=== PATIENT | female | born 1935 | race Caucasian/White ===

== ENCOUNTER 2021-05-03 08:38 | Inpatient (IN) | payer MEDICARE, BC ==
[~2021-05-03] VITALS: Ht 154.9 cm; Wt 92.6 kg
--- NOTE | 2021-05-03 08:42 | PHYS DOC ---
Past History Past Medical History: Dementia Adult General Chief Complaint Chief Complaint: MECHANICAL FALL HPI HPI Patient is a 85-year-old female presenting via EMS for a fall. Majority of record is obtained from EMS due to patient's acute intoxication from administer ed opioid medication in route. Patient he lives at home with daughter was apparently walking with her walker and fell backwards onto her tailbone. This was witnessed, patient did not hit her head, no loss of consciousness or other concerning signs or symptoms such as dizziness, prodromal symptoms, loss of bladder or bowel, nausea or vomit was reported or observed. It is unknown if patient is taking any blood thinners. Given patient's age and comorbid conditions, daughter was concerned and called EMS. Transported to our facility. On EMS arrival to home, patient was found to be hemodynamically stable and complaining of lower back pain only. A total of 50 mcg fentanyl administered and patient subsequently transported to our facility. On arrival, patient denies any symptoms. She is unclear of what happened and why she is in the ER Review of Systems Review of Systems Fourteen body systems of review of systems have been reviewed. See HPI for pertinent positives and negative responses, other german all other systems are negative, non-pertinent or non-contributory Physical Exam Physical Exam Constitutional: Pt is oriented to person, place, and time. Pt appears well-developed and well- nourished. Age-appropriate. GCS 15 HEENT: Head: Normocephalic and atraumatic. TMs clear, no hemotympanum Conjunctivae and EOM are normal. Pupils are pinpoint, equal, round, and reactive to light. Oropharynx is clear and moist. No hematomas or lacerations or abrasions to face or scalp OP clear, no blood, no malocclusion, dentition intact Nares clear, no nasal septal hematoma Midface stable Neck: C-spine midline nontender, no step-offs Cardiovascular: Normal rate, regular rhythm and normal heart sounds. Pulmonary/Chest: Effort normal and breath sounds normal. No respiratory distress. No wheezes. CTA bilaterally Abdominal: Soft. Bowel sounds are normal. Pt exhibits no distension. There is no tenderness. Musculoskeletal: No bony tenderness to extremities, no deformities, full ROM extremities Chest wall stable Pelvis stable and non-tender Vertebral tenderness to palpation over level of T12 without any appreciated step-offs or other abnormalities Neurological: Pt is alert and oriented to person, place, and time. Moving all extremities willfully, able to wiggle all fingers and toes Alert and oriented x 3 Motor and sensory function fully intact Downgoing toes bilaterally Patient able to bear down with adequate rectal tone, no saddle anesthesia Skin: Skin is warm and dry. No abrasions, no lacerations Psychiatric: Behavior is appropriate for situation Current Patient Data Vital Signs Vital Signs Date Time Temp Pulse Resp B/P (MAP) Pulse Ox O2 Delivery O2 Flow Rate FiO2 05/03/21 08:56 97.7 87 18 134/82 (99) 83 Room Air 05/03/21 09:01 3.0 Vital Signs Date Time Temp Pulse Resp B/P (MAP) Pulse Ox O2 Delivery O2 Flow Rate FiO2 05/03/21 09:01 97 Nasal Cannula 3.0 05/03/21 08:56 97.7 87 18 134/82 (99) Lab Results Laboratory Tests Test 05/03/21 09:22 05/03/21 09:31 05/03/21 11:34 Urine Collection Type Unknown Urine Color Straw Urine Clarity Clear Urine pH 6.5 Urine Specific [place] 1.015 Urine Protein Neg Urine Glucose (UA) Neg mg/dL Urine Ketones (Stick) Neg mg/dL Urine Blood Neg Urine Nitrite Neg Urine Bilirubin Neg Urine Urobilinogen Dipstick 0.2 mg/dL Urine Leukocyte Esterase Neg Urine RBC Occ /HPF Urine WBC Occ /HPF Urine Squamous Epithelial Cells Few /LPF Urine Bacteria 0 /HPF Urine Hyaline Casts Occ /HPF Urine Mucus Slight /LPF White Blood Count 16.7 x10^3/uL Red Blood Count 4.40 x10^6/uL Hemoglobin 12.4 g/dL Hematocrit 39.9 % Mean Corpuscular Volume 91 fL Mean Corpuscular Hemoglobin 28 pg Mean Corpuscular Hemoglobin Concent 31 g/dL Red Cell Distribution Width 22.2 % Platelet Count 277 x10^3/uL Neutrophils (%) (Auto) 78 % Lymphocytes (%) (Auto) 15 % Monocytes (%) (Auto) 6 % Eosinophils (%) (Auto) 1 % Basophils (%) (Auto) 1 % Neutrophils # (Auto) 12.9 x10^3uL Lymphocytes # (Auto) 2.4 x10^3/uL Monocytes # (Auto) 1.0 x10^3/uL Eosinophils # (Auto) 0.2 x10^3/uL Basophils # (Auto) 0.1 x10^3/uL Segmented Neutrophils % 59 % Band Neutrophils % 12 % Lymphocytes % 20 % Monocytes % 7 % Metamyelocytes % 2 % Platelet Estimate Adequate Anisocytosis Slight Sodium Level 141 mmol/L Potassium Level 3.8 mmol/L Chloride Level 102 mmol/L Carbon Dioxide Level 30 mmol/L Anion Gap 9 Blood Urea Nitrogen 13 mg/dL Creatinine 0.9 mg/dL Estimated GFR (Cockcroft-Gault) 59.4 Glucose Level 126 mg/dL Calcium Level 8.9 mg/dL Troponin I High Sensitivity 7 ng/L SARS-CoV-2 Antigen (Rapid) Negative Current Medications Medications (Trade) Dose Ordered Sig/Irma Route PRN Reason Start Time Stop Time Status Last Admin Dose Admin Fentanyl Citrate (Fentanyl 2ml Vial) 50 mcg 1X ONCE IVP 05/03/21 11:00 05/03/21 11:07 DC 05/03/21 10:58 Hydromorphone HCl (Dilaudid) 1 mg STK-MED ONCE .ROUTE 05/03/21 12:57 05/03/21 12:57 DC Hydromorphone HCl (Dilaudid) 0.5 mg 1X ONCE IVP 05/03/21 13:00 05/03/21 13:07 DC 05/03/21 13:02 Hydromorphone HCl (Dilaudid) 0.5 mg 1X ONCE IVP 05/03/21 15:45 05/03/21 15:46 DC 05/03/21 16:13 EKG EKG EKG ordered and interpreted by myself at 0940 hrs. as sinus rhythm at 84 bpm, prolonged AZ at 236, QRS at 122, and QTC at 483 otherwise unremarkable intervals, no axis deviation, T wave inversion noted in leads V1 and V2, no STEMI Radiology/Procedures Radiology/Procedures CT HEAD AND C-SPINE WO History: Fall to ground, midline tenderness to neck, t10-l2 Comparison: None. Technique: Noncontrast CT of the head and cervical spine. Findings: CT HEAD: There is no evidence for intracranial mass or hemorrhage. There is no hydrocephalus or midline shift. No abnormal extra-axial fluid collections are present. No evidence of acute territorial infarction. Hypodensity of the periventricular white matter consistent with chronic microvascular ischemic changes. The visualized paranasal sinuses and mastoid air cells are clear. Postsurgical changes of the lenses. Orbits are otherwise unremarkable. Calcifications of the intracranial carotid arteries. The skull and scalp are within normal limits. CT CERVICAL SPINE: There is no evidence for fracture in the cervical spine. Straightening of the normal cervical lordosis. No spondylolisthesis. Disc space narrowing C4-C5 and C5-C6 with circumferential osteophytes causing bilateral neural foraminal stenosis. No destructive osseous lesions are seen. Mild emphysematous changes in lung apex. Calcification of the aortic arch. Impression: 1. No acute intracranial findings. 2. No acute osseous abnormality in the cervical spine. 3. Degenerative changes of the cervical spine C4-C6 with bilateral neural foraminal stenoses. Correlate for radicular symptoms. ------- Exposure: One or more of the following individualized dose reduction techniques were utilized for this examination: 1. Automated exposure control 2. Adjustment of the mA and/or kV according to patient size 3. Use of iterative reconstruction technique. Electronically signed by: Edwin Colby MD (05/03/2021 10:27 AM) [id number] ////////////////////////////////////////////////////////// Single view of the chest. 05/03/2021 10:21 AM Indication: Reason: fall Comparison: None Findings: There is no focal consolidation. There is no pleural effusion or pneumothorax. Mild cardiac medially noted.. No acute osseous abnormalities are seen. Impression: No evidence of acute cardiopulmonary process. Electronically signed by: Fransisco Washington MD (05/03/2021 10:39 AM) [id number] /////////////////////////////////// EXAM: Pelvis, single view. HISTORY: Fall. COMPARISON: None. FINDINGS: A frontal view of the pelvis is obtained. There is moderate marginal right femoral head spurring. There is mild bilateral acetabular and left femoral head spurring. There is degenerative change at the lumbosacral junction. IMPRESSION: 1. Moderate right and mild left hip osteoarthritis. 2. Degenerative change at the lumbosacral junction. Electronically signed by: Thea Viera MD (05/03/2021 10:37 AM) [id number] //////////////// CT LUMBAR SPINE WO, CT THORACIC SPINE WO History: Reason: fall to ground, midline tenderness to neck, t10-l2 / Spl. Inst ructions: / History: Technique: Noncontrast CT was performed of the lumbar spine. Multiplanar reconstructions were performed. Comparison: CT cervical spine 05/03/2021. Chest x-ray 04/22/2018 Findings: There are 12 rib bearing thoracic vertebral bodies with tiny riblets at T12. There are 4 nonrib-bearing lumbar type vertebral bodies. Compression fracture of the T12 vertebral body with disruption of the anterior cortex and approximately 20 percent height loss. No paraspinal hematoma is identified. Diffusely decreased osseous mineralization. Normal alignment in the thoracic and lumbar spine. Degenerative changes of the lower cervical spine are identified. Multilevel marginal osteophytes in the thoracic spine. There is irregular sclerotic density in the left posterior inferior T7 vertebral body present since 2018. Degenerative changes of the L4-S1 disc with vacuum disc phenomena. Left L3-L4 and right L4-S1 facet hypertrophy. Emphysematous changes in the lungs. Atherosclerotic calcifications of the coron clementina arteries, aorta and iliac arteries. No aneurysm. Impression: 1. Acute compression deformity at the T12 vertebral body with approximately 20 percent anterior height loss and disruption of the anterior cortex. 2. Variant anatomy with 12 thoracic vertebral segments including rudimentary ribs at T12 and 4 lumbar type vertebral bodies. 3. Degenerative changes of the lower lumbar spine. 4. Emphysematous changes. Exposure: One or more of the following individualized dose reduction techniques were utilized for this examination: 1. Automated exposure control 2. Adjustment of the mA and/or kV according to patient size 3. Use of iterative reconstruction technique. Electronically signed by: Edwin Colby MD (05/03/2021 10:37 AM) [id number] Heart Score C/O Chest Pain: No HEART Score for Chest Pain: HEART Score for Chest Pain Response (Comments) Value History Slighlty/Non-Suspicious 0 ECG Nonspecific Repolarizatio 1 Age > 65 2 Risk Factors >3 Risk Factors or Hx CAD 2 Troponin < Normal Limit 0 Total 5 Risk Factors: Risk Factors: DM, Current or recent (<one month) smoker, HTN, HLP, family history of CAD, obesity. Risk Scores: Risk Factors: DM, Current or recent (<one month) smoker, HTN, HLP, family history of CAD, obesity. Course & Med Decision Making Course & Med Decision Making Airway patent, breathing unlabored, IV access and vitals obtained concerning for hypoxia only in an elderly patient who recently received opioid medication History limited due to dementia and the fact that patient is under the influence of narcotic pain medication. Physical examination and subsequent comprehensive ER work-up concerning for acute T12 compression fracture Patient's mentation improved after time during ER stay likely from metabolizing opioid medication administered in route. Is more reliable historian with history confirmed by daughter at bedside. She is on no blood thinners. Only complaint is midline back pain without radiation or neuro sxs I contacted neurosurgery [facility]level [facility] and discussed case, case and images were reviewed with attending neurosurgeon who discussed potential need for vertebroplasty and recommended transfer to [facility] I discussed conversation with neurosurgeon with patient and daughter at bedside, patient who at time of discussion was AAO x3, GCS 15 and demonstrated full decision-making capacity voiced she did not want any surgery whatsoever and wanted conservative management As such, neurosurgeon group at [facility] was contacted due to excessive wait for admission at [facility] due to COVID-19 titus demic. Attending neurosurgeon at [facility] ultimately recommended conservative management and advised placement at current hospital I contacted [facility] hospitalist and discussed case at length, patient was ultimately accepted under the care of Dr. Mejía for continued pain control, fitting of a back brace, PT, OT etc. to ensure safe discharge back home with the daughter given new acute T12 fracture I updated patient and daughter on all conversations above and entirety of ER work-up, they were amenable to hospital admission at [facility] for further inpatient work-up and assistance with discharge planning given new deficits. All questions and concerns addressed prior to admission Of note, patient does confirm that she is DNR status at time of admission Dragon Disclaimer Dragon Disclaimer This electronic medical record was generated, in whole or in part, using a voice recognition dictation system. Departure Departure: Impression: Primary Impression: Fall Additional Impressions: T12 compression fracture History of chronic pain Disposition: ADMITTED INPATIENT Admitting Physician: Maykel Mejía Condition: STABLE Problem Qualifiers RICHIE RUDOLPH DO May 03, 2021 08:42
[2021-05-03 09:47] LABS: BASO # 0.1 x10^3/uL (0.0-0.2); BASO % 1 % (0-3); EOS # 0.2 x10^3/uL (0.0-0.7); EOS % 1 % (0-3); HEMATOCRIT 39.9 % (36.0-47.0); HEMOGLOBIN 12.4 g/dL (12.0-15.5); LYMPH # 2.4 x10^3/uL (1.0-4.8); LYMPH % 15 % (24-48); MEAN CORPUSCULAR HEMOGLOBIN 28 pg (25-35); MEAN CORPUSCULAR HGB CONC 31 g/dL (31-37); MEAN CORPUSCULAR VOLUME 91 fL (79-100); MONO % 6 % (0-9); NEUT # 12.9 x10^3uL (1.8-7.7); NEUT % 78 % (31-73); PLATELET COUNT 277 x10^3/uL (140-400); RED CELL DISTRIBUTION WIDTH 22.2 % (11.5-14.5); WHITE BLOOD COUNT 16.7 x10^3/uL (4.0-11.0)
[2021-05-03 09:55] LABS: BACTERIA,URINE 0 /HPF (0-FEW); BILIRUBIN,URINE NEG (NEG); CLARITY,URINE CLEAR; COLOR,URINE STRAW; GLUCOSE,URINE NEG (NEG); NITRITE,URINE NEG (NEG); RBC,URINE OCC /HPF (0-2); SQUAMOUS EPITHELIAL CELL,UR FEW /LPF; UROBILINOGEN,URINE 0.2 mg/dL (0.2 mg/dL); WBC,URINE OCC /HPF (0-4)
[2021-05-03 09:56] LABS: HYALINE CASTS, URINE OCC /HPF
[2021-05-03 09:58] LABS: CALCIUM 8.9 mg/dL (8.5-10.1); CREATININE 0.9 mg/dL (0.6-1.0); GFR 59.4; POTASSIUM 3.8 mmol/L (3.5-5.1)
--- NOTE | 2021-05-03 10:03 | EKG ---
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
--- NOTE | 2021-05-03 10:29 | RAD ---
CT HEAD AND C-SPINE WO History: Fall to ground, midline tenderness to neck, t10-l2 Comparison: None. Technique: Noncontrast CT of the head and cervical spine. Findings: CT HEAD: There is no evidence for intracranial mass or hemorrhage. There is no hydrocephalus or midline shift. No abnormal extra-axial fluid collections are present. No evidence of acute territorial infarction. Hypodensity of the periventricular white matter consiste nt with chronic microvascular ischemic changes. The visualized paranasal sinuses and mastoid air cells are clear. Postsurgical changes of the lenses. Orbits are otherwise unremarkable. Calcifications of the intracranial carotid arteries. The skull and scalp are within normal limits. CT CERVICAL SPINE: There is no evidence for fracture in the cervical spine. Straightening of the normal cervical lordosis. No spondylolisthesis. Disc space narrowing C4-C5 and C5-C6 with circumferential osteophytes causing bilateral neural forami nal stenosis. No destructive osseous lesions are seen. Mild emphysematous changes in lung apex. Calcification of the aortic arch. Impression: 1. No acute intracranial findings. 2. No acute osseous abnormality in the cervical spine. 3. Degenerative changes of the cervical spine C4-C6 with bilateral neural foraminal stenoses. Correl ate for radicular symptoms. ------- Exposure: One or more of the following individualized dose reduction techniques were utilized for thi s examination: 1. Automated exposure control 2. Adjustment of the mA and/or kV according to patient size 3. Use of iterative reconstruction technique. Electronically signed by: Edwin Colby MD (05/03/2021 10:27 AM) [id number]
--- NOTE | 2021-05-03 10:39 | RAD ---
CT LUMBAR SPINE WO, CT THORACIC SPINE WO History: Reason: fall to ground, midline tenderness to neck, t10-l2 / Spl. Instructions: / History: Technique: Noncontrast CT was performed of the lumbar spine. Multiplanar reconstructions were perform ed. Comparison: CT cervical spine 05/03/2021. Chest x-ray 04/22/2018 Findings: There are 12 rib bearing thoracic vertebral bodies with tiny riblets at T12. There are 4 nonrib-beari ng lumbar type vertebral bodies. Compression fracture of the T12 vertebral body with disruption of the anterior cortex and approximate ly 20 percent height loss. No paraspinal hematoma is identified. Diffusely decreased osseous mineralization. Normal alignment in the thoracic and lumbar spine. Degenerative changes of the lower cervical spine are identified. Multilevel marginal osteophytes in t he thoracic spine. There is irregular sclerotic density in the left posterior inferior T7 vertebral b gala present since 2018. Degenerative changes of the L4-S1 disc with vacuum disc phenomena. Left L3-L4 and right L4-S1 facet h ypertrophy. Emphysematous changes in the lungs. Atherosclerotic calcifications of the coronary arteries, aorta an d iliac arteries. No aneurysm. Impression: 1. Acute compression deformity at the T12 vertebral body with approximately 20 percent anterior heig ht loss and disruption of the anterior cortex. 2. Variant anatomy with 12 thoracic vertebral segments including rudimentary ribs at T12 and 4 lumba r type vertebral bodies. 3. Degenerative changes of the lower lumbar spine. 4. Emphysematous changes. Exposure: One or more of the following individualized dose reduction techniques were utilized for thi s examination: 1. Automated exposure control 2. Adjustment of the mA and/or kV according to patient size 3. Use of iterative reconstruction technique. Electronically signed by: Edwin Colby MD (05/03/2021 10:37 AM) [place] [id number]
--- NOTE | 2021-05-03 10:40 | RAD ---
EXAM: Pelvis, single view. HISTORY: Fall. COMPARISON: None. FINDINGS: A frontal view of the pelvis is obtained. There is moderate marginal right femoral head spu rring. There is mild bilateral acetabular and left femoral head spurring. There is degenerative coronado e at the lumbosacral junction. IMPRESSION: 1. Moderate right and mild left hip osteoarthritis. 2. Degenerative change at the lumbosacral junction. Electronically signed by: Thea Viera MD (05/03/2021 10:37 AM) [id number]
--- NOTE | 2021-05-03 10:42 | RAD ---
Single view of the chest. 05/03/2021 10:21 AM Indication: Reason: fall Comparison: None Findings: There is no focal consolidation. There is no pleural effusion or pneumothorax. Mild cardiac medially noted.. No acute osseous abnormalities are seen. Impression: No evidence of acute cardiopulmonary process. Electronically signed by: Fransisco Washington MD (05/03/2021 10:39 AM) [id number]
[2021-05-03] MEDS ORDERED: HYDROmorphone PF 1 MG/ML DISP.SYRIN ONE (12:57)
[2021-05-03] MEDS ORDERED: HYDROmorphone PF 1 MG/ML DISP.SYRIN IVP ONE ×2 (13:00→15:45)
[2021-05-03] MEDS ORDERED: ACETAMINOPHEN 325 MG TABLET PO PRN (17:30)
[2021-05-03] MEDS ORDERED: NITROGLYCERIN SUBLINGUAL 0.4 MG BOTTLE OF 25. SL PRN (17:30)
[2021-05-03 18:02] LABS: % BANDS 12 % (0-9); % LYMPHS 20 % (24-48); % METAS 2 % (0-0); % MONOS 7 % (0-10); % SEGS 59 % (35-66)
[2021-05-03 18:03] LABS: ANISOCYTOSIS SLIGHT; PLT ESTIMATE ADEQUATE (ADEQUATE)
[2021-05-03 19:48] VITALS: BP 152/78
[2021-05-03] MEDS: HYDROmorphone PF 1 MG/ML DISP.SYRIN IV PRN (20:53)
[2021-05-04] MEDS: HYDROmorphone PF 1 MG/ML DISP.SYRIN IV PRN ×5 (02:18→16:19)
[2021-05-04 06:14] VITALS: BP 152/71
[2021-05-04 11:10] LABS: ALBUMIN 3.8 g/dL (3.4-5.0); CALCIUM 9.1 mg/dL (8.5-10.1); CREATININE 0.7 mg/dL (0.6-1.0); GFR 79.3; POTASSIUM 3.2 mmol/L (3.5-5.1); TOTAL BILIRUBIN 0.5 mg/dL (0.2-1.0); TOTAL PROTEIN 7.5 g/dL (6.4-8.2)
[2021-05-04 11:54] VITALS: BP 147/69
[2021-05-04 12:00] LABS: BASO # 0.1 x10^3/uL (0.0-0.2); BASO % 1 % (0-3); EOS # 0.3 x10^3/uL (0.0-0.7); EOS % 1 % (0-3); HEMATOCRIT 37.8 % (36.0-47.0); HEMOGLOBIN 12.2 g/dL (12.0-15.5); LYMPH # 2.9 x10^3/uL (1.0-4.8); LYMPH % 15 % (24-48); MEAN CORPUSCULAR HEMOGLOBIN 29 pg (25-35); MEAN CORPUSCULAR HGB CONC 32 g/dL (31-37); MEAN CORPUSCULAR VOLUME 91 fL (79-100); MONO # 1.4 x10^3/uL (0.0-1.1); MONO % 7 % (0-9); NEUT # 14.7 x10^3uL (1.8-7.7); NEUT % 76 % (31-73); PLATELET COUNT 241 x10^3/uL (140-400); RED BLOOD COUNT 4.16 x10^6/uL (3.50-5.40); WHITE BLOOD COUNT 19.3 x10^3/uL (4.0-11.0)
[2021-05-04 14:55] VITALS: BP 136/69
[2021-05-04] MEDS ORDERED: BISACODYL 10 MG/30 ML ENEMA RC PRN (17:30)
[2021-05-04] MEDS ORDERED: MONT10TA80 PO (17:57)
[2021-05-04] MEDS ORDERED: LEVO500T9 PO (17:57)
[2021-05-04] MEDS ORDERED: PRED-220 PO (17:57)
[2021-05-04] MEDS ORDERED: DONE10TA7 PO (17:57)
[2021-05-04] MEDS ORDERED: LOSA50TA86 PO (17:57)
[2021-05-04] MEDS ORDERED: POTA-112 PO (17:57)
[2021-05-04] MEDS ORDERED: LORA-254 PO (17:57)
[2021-05-04] MEDS ORDERED: MEMA10TA PO (17:57)
[2021-05-04] MEDS ORDERED: FLUT9.9S NS (17:57)
[2021-05-04] MEDS ORDERED: SIMV40TA18 PO (17:57)
[2021-05-04] MEDS ORDERED: LEVO112T4 PO (17:57)
[2021-05-04] MEDS ORDERED: AMOX1TAB11 PO (17:57)
[2021-05-04] MEDS ORDERED: OFLO5DRO7 AS (17:57)
[2021-05-04] MEDS ORDERED: NEO/5DRO EACHEYE (17:57)
[2021-05-04] MEDS ORDERED: LOPE2TAB27 PO (17:57)
[2021-05-04] MEDS ORDERED: MELO7.5T29 PO (17:57)
[2021-05-04] MEDS ORDERED: BISA10EN RC (17:57)
[2021-05-04] MEDS ORDERED: TRAZ-125 PO (17:57)
[2021-05-04] MEDS ORDERED: METH4TAB7 PO (17:57)
[2021-05-04] MEDS ORDERED: FURO40TA4 PO (17:57)
[2021-05-04] MEDS ORDERED: LORA10TA3 PO (17:57)
[2021-05-04] MEDS ORDERED: TIOT18CA IH (17:57)
[2021-05-04] MEDS ORDERED: DICY10CA3 PO (17:57)
[2021-05-04] MEDS ORDERED: AMOX500C PO (17:57)
[2021-05-04] MEDS ORDERED: GABA600T7 PO (17:57)
[2021-05-04] MEDS ORDERED: DULO40CA2 PO (17:57)
[2021-05-04] MEDS ORDERED: PANT40TA6 PO (17:57)
[2021-05-04] MEDS ORDERED: OXYC-316 PO (17:57)
[2021-05-04] MEDS ORDERED: MELA10TA2 PO (17:57)
[2021-05-04] MEDS ORDERED: VIT1CAPS12 PO (17:57)
[2021-05-04] MEDS ORDERED: PROM25TA10 PO (17:57)
[2021-05-04] MEDS ORDERED: TRAM50TA PO (17:57)
--- NOTE | 2021-05-04 18:22 | HP ---
DATE OF SERVICE: 05/04/2021 ADMIT DATE: 05/03/2021 HISTORY OF PRESENT ILLNESS: The patient is an 85-year-old female patient who presented to the Emergency Room of [facility] via EMS for a fall. She apparently lives at home with her daughter, was apparently walking without her walker and fell backward onto her tail bone. This was a witnessed fall, but the patient did not hit her head nor did she lose consciousness or other concerning signs or symptoms such as dizziness, prodromal symptoms or loss of bladder or bowel, nausea or vomiting that was observed or reported. It is unknown if the patient is taking her blood thinner. Given the patient's age and comorbid conditions, daughter was concerned and called EMS. She was transported to our facility. Unfortunately, she has received an opioid medication en route and she became very intoxicated. By the time EMS arrived to her home, the patient was found to be hemodynamically stable and complaining of low back pain only. She has received a total of 50 mcg of fentanyl and subsequently transported to our facility. On arrival, the patient denied any symptoms. She is unclear of as to what happened and why she is in the Emergency Room. She was extensively investigated in the Emergency Room and has had lab work and imaging studies. Her lab work showed a white cell count was slightly high at 16,700. Her chemistry was unremarkable; however, her CT scan of the head and cervical spine was unremarkable, showed no acute intracranial finding. Her CT scan of the lumbar and thoracic spine showed that the patient has acute compression deformity at T12 vertebral body with approximately 20% anterior height loss and disruption of the anterior cortex. She has degenerative changes of the lower lumbar spine and emphysematous changes in her lungs. The chest x-ray showed no evidence of acute cardiopulmonary process and x-ray of the pelvis showed moderate right and mild left hip osteoarthritis, degenerative changes of the lumbosacral junction. The patient was admitted for pain control. PAST MEDICAL HISTORY: Significant for COPD, hypothyroidism. She also has irritable bowel syndrome, dementia, hyperlipidemia and senile macular degeneration. PAST SURGICAL HISTORY: Significant for bilateral cataract extraction, appendectomy, cholecystectomy, total abdominal hysterectomy, bilateral total knee arthroplasty, back surgery and left shoulder rotator cuff repair. ALLERGIES: SHE IS ALLERGIC TO ASPIRIN. MEDICATIONS: She is currently on following medications: She is on tramadol 50 mg, she takes 1-2 tablets once a day, Dulcolax tablet 1 tablet once a day, gabapentin 600 mg 3 times a day, levothyroxine 112 mcg once a day, meloxicam 7.5 mg once a day, dicyclomine 10 mg twice a day, Protonix 40 mg once a day, furosemide 40 mg once a day, potassium chloride 10 mEq once a day, loratadine 10 mg once a day, trazodone 200 mg at bedtime, melatonin 10 mg at bedtime, bisacodyl suppositories 10 mg once a day as needed, Aricept 10 mg once a day, simvastatin 40 mg once a day, montelukast 10 mg once a day, and PreserVision AREDS 1 tablet once a day. FAMILY HISTORY: She has 4 brothers, 1 older and 3 younger. Her father at age of 72. She cannot remember how old her mother was when she was . SOCIAL HISTORY: She lives with her daughter. She smoked for about 31 years, quit about 8 years ago. She does not drink alcohol. She did work in multiple jobs. PHYSICAL EXAMINATION: GENERAL: On arrival to the Emergency Room, she looked well and was clearly in no apparent respiratory distress. She was somewhat pale, but not jaundiced, cyanosed. No lymphadenopathy, no thyromegaly. No jugular venous distention. No limb edema. VITAL SIGNS: Her heart rate was 94, blood pressure was 159/69, temperature was 97.7, respiratory rate was 18 and oxygen saturation was 94% on 2 liters of oxygen. HEAD, EYES, EARS, NOSE, AND THROAT: Normocephalic, atraumatic. NECK: Supple. HEART: Showed normal first and second heart sounds. No gallop, rub or murmur. CHEST: Clear to auscultation, no crepitation or rhonchi. ABDOMEN: Distended, soft, nontender. NEUROLOGIC: She is demented, but without any obvious lateralizing sign. LABORATORY DATA: Her lab work on arrival showed a white cell count of 16,700, hemoglobin 12.4, hematocrit 39.9, MCV 91, and platelet count 277,000. Serum sodium was 141, potassium 3.8, chloride 102, bicarbonate 30, anion gap of 9, BUN 13, creatinine 0.9. Estimated GFR was 59 mL per minute. Her glucose was 126, calcium was 8.9. Her urinalysis showed the urine was straw colored, clear with a pH of 6.5, specific gravity of 1.015. The urine was negative for protein, glucose, ketones, blood, nitrite, bilirubin, leukocyte esterase and no wbc's, no rbc's and no bacteria. Her coronavirus by PCR was negative. DIAGNOSTIC DATA: Her x-rays were unremarkable except for a T12 compression fracture with approximately 20% anterior height loss and disruption of the anterior cortex. ASSESSMENT AND PLAN: The patient was admitted with a new onset of T12 compression fracture, was admitted for pain management. We will reconcile all her medications. Continue with pain management. Continue with all her other medications. We will arrange for her to be transferred to [facility] if a bed becomes available tomorrow as she probably will require vertebroplasty and an MRI. CB/ZAINAB/JACIEL DR: Marjan TID: [id number]
[2021-05-04] MEDS ORDERED: LOPERAMIDE 2 MG CAPSULE PO PRN (20:30)
[2021-05-04] MEDS ORDERED: NON FORMULARY ITEM (Amoxicillin 500 MG) PO SCH (21:00)
[2021-05-04] MEDS: IPRATRPIUM/ALBUTEROL 0.5/2.5MG 3 ML NEBU. NEB SCH (21:00)
[2021-05-04] MEDS ORDERED: OFLOXACIN AS SCH (21:00)
[2021-05-04] MEDS: MULTIVITAMIN I-VITE TABLET. PO SCH (21:25)
[2021-05-04] MEDS: GABAPENTIN 300 MG CAPSULE. PO SCH (21:25)
[2021-05-04] MEDS: MEMANTINE 5 MG TABLET. PO SCH (21:25)
[2021-05-04] MEDS: traZODone 100 MG TABLET. PO SCH (21:25)
[2021-05-04] MEDS: DICYCLOMINE HCL 10 MG CAPSULE PO SCH (21:25)
[2021-05-04] MEDS: SIMVASTATIN 40 MG TABLET. PO SCH (21:25)
[2021-05-04] MEDS: DULoxetine HCL 60 MG CAPSULE.DR PO SCH (21:25)
[2021-05-04] MEDS: MELATONIN 3 MG TABLET PO SCH (21:25)
[2021-05-04] MEDS: MONTELUKAST 10 MG TABLET. PO SCH (21:25)
[2021-05-04] MEDS: LORazepam 1 MG TABLET PO SCH (21:25)
[2021-05-04] MEDS: CETIRIZINE HCL 10 MG TABLET PO SCH (21:26)
[2021-05-04] MEDS: DONEPEZIL HCL 10 MG TABLET PO SCH (21:26)
[2021-05-04] MEDS: HYDROmorphone PF 1 MG/ML DISP.SYRIN IVP PRN (21:27)
[2021-05-04 23:14] VITALS: BP 151/80
[2021-05-05] MEDS: ONDANSETRON PF 4 MG/2 ML VIAL. IVP PRN ×2 (00:14→04:20)
[2021-05-05] MEDS: LEVOTHYROXINE 112 MCG TABLET PO SCH (05:39)
[2021-05-05 05:57] VITALS: BP 168/74
[2021-05-05] MEDS: IPRATRPIUM/ALBUTEROL 0.5/2.5MG 3 ML NEBU. NEB SCH ×4 (07:14→20:00)
[2021-05-05] MEDS: FLUTICASONE 50MCG/NASAL SPRAY 16GM BOTTLE. NS SCH (08:03)
[2021-05-05] MEDS: GABAPENTIN 300 MG CAPSULE. PO SCH ×3 (08:04→21:01)
[2021-05-05] MEDS: DICYCLOMINE HCL 10 MG CAPSULE PO SCH ×2 (08:04→21:01)
[2021-05-05] MEDS: MELOXICAM 7.5 MG TABLET PO SCH (08:04)
[2021-05-05] MEDS: PANTOPRAZOLE 40 MG TABLET. PO SCH (08:04)
[2021-05-05] MEDS: POTASSIUM CHLORIDE 10 MEQ TABLET.ER. PO SCH (08:04)
[2021-05-05] MEDS: LOSARTAN 50 MG TABLET. PO SCH (08:04)
[2021-05-05] MEDS: LORazepam 1 MG TABLET PO SCH ×2 (08:05→21:01)
[2021-05-05] MEDS: FUROSEMIDE 40 MG TABLET PO SCH (08:05)
[2021-05-05] MEDS ORDERED: NON FORMULARY ITEM (Tiotropium Bromide (Spiriva) 1 CAP) IH SCH (09:00)
[2021-05-05] MEDS: HYDROmorphone PF 1 MG/ML DISP.SYRIN IVP PRN (09:56)
[2021-05-05 10:55] VITALS: BP 136/83
[2021-05-05 15:01] VITALS: BP 115/65
[2021-05-05 15:16] LABS: BASO # 0.1 x10^3/uL (0.0-0.2); BASO % 1 % (0-3); EOS # 0.1 x10^3/uL (0.0-0.7); EOS % 1 % (0-3); HEMATOCRIT 35.1 % (36.0-47.0); LYMPH # 2.5 x10^3/uL (1.0-4.8); LYMPH % 13 % (24-48); MEAN CORPUSCULAR HEMOGLOBIN 29 pg (25-35); MEAN CORPUSCULAR HGB CONC 31 g/dL (31-37); MEAN CORPUSCULAR VOLUME 91 fL (79-100); MONO # 1.6 x10^3/uL (0.0-1.1); MONO % 8 % (0-9); NEUT # 15.2 x10^3uL (1.8-7.7); NEUT % 78 % (31-73); PLATELET COUNT 217 x10^3/uL (140-400); RED BLOOD COUNT 3.87 x10^6/uL (3.50-5.40); RED CELL DISTRIBUTION WIDTH 22.6 % (11.5-14.5); WHITE BLOOD COUNT 19.5 x10^3/uL (4.0-11.0)
[2021-05-05 15:30] LABS: CREATININE 0.8 mg/dL (0.6-1.0)
[2021-05-05 15:35] LABS: ALBUMIN 3.3 g/dL (3.4-5.0); ALBUMIN/GLOBULIN RATIO 0.9 (1.0-1.7); TOTAL BILIRUBIN 0.4 mg/dL (0.2-1.0); TOTAL PROTEIN 6.8 g/dL (6.4-8.2)
[2021-05-05 18:57] VITALS: BP 100/62
--- NOTE | 2021-05-05 20:59 | PN ---
DATE: 05/05/2021 SUBJECTIVE: The patient is resting, slightly propped up, sleeping comfortably in bed. The nursing staff stated that she managed to get sit in the chair for a short period of time and walk to the bathroom, but she continued to have severe back pain for which she has received hydromorphone. PHYSICAL EXAMINATION: GENERAL: When I examined her today, she looked well and was clearly in no apparent respiratory distress. No pallor, jaundice, cyanosis or thyromegaly. No jugular venous distention. No limb edema. VITAL SIGNS: Her heart rate was 103, blood pressure was 136/83, temperature was 98.9, respiratory rate was 18 and oxygen saturation was 95% on 2 liters of oxygen. The rest of clinical exam stable. Her intake over the last 24 hours was incompletely recorded. LABORATORY DATA: Today's labs are still pending at the time of this dictation. Her white cell count as of yesterday was high at 19,000, hemoglobin 12, hematocrit 37, MCV 91, and platelet count 241,000 with normal manual differential. Today's labs are still pending at the time of this dictation. ASSESSMENT: New onset of T12 compression fracture, for which she is now on IV hydromorphone 0.5 mg every 2 hours. The patient has a multitude of medical problems that included: A. Chronic obstructive pulmonary disease. B. Hypothyroidism. C. Irritable bowel syndrome. D. Hyperlipidemia. E. Senile macular degeneration. F. Dementia. PLAN: We will try to transfer her to [facility] to consult the interventional radiologist as she might be a candidate for vertebroplasty. RACHEL DR: Marjan TID: [id number]
[2021-05-05] MEDS: CETIRIZINE HCL 10 MG TABLET PO SCH (21:00)
[2021-05-05] MEDS: MELATONIN 3 MG TABLET PO SCH (21:00)
[2021-05-05] MEDS: MULTIVITAMIN I-VITE TABLET. PO SCH (21:01)
[2021-05-05] MEDS: SIMVASTATIN 40 MG TABLET. PO SCH (21:01)
[2021-05-05] MEDS: DULoxetine HCL 60 MG CAPSULE.DR PO SCH (21:01)
[2021-05-05] MEDS: MONTELUKAST 10 MG TABLET. PO SCH (21:01)
[2021-05-05] MEDS: MEMANTINE 5 MG TABLET. PO SCH (21:01)
[2021-05-05] MEDS: DONEPEZIL HCL 10 MG TABLET PO SCH (21:01)
[2021-05-05] MEDS: traZODone 100 MG TABLET. PO SCH (21:01)
[2021-05-06] MEDS: LEVOTHYROXINE 112 MCG TABLET PO SCH (05:41)
[2021-05-06] MEDS: IPRATRPIUM/ALBUTEROL 0.5/2.5MG 3 ML NEBU. NEB SCH ×4 (05:59→20:57)
[2021-05-06 06:03] VITALS: BP 117/66
[2021-05-06] MEDS: FLUTICASONE 50MCG/NASAL SPRAY 16GM BOTTLE. NS SCH (07:48)
[2021-05-06] MEDS: FUROSEMIDE 40 MG TABLET PO SCH (07:48)
[2021-05-06] MEDS: PANTOPRAZOLE 40 MG TABLET. PO SCH (07:48)
[2021-05-06] MEDS: GABAPENTIN 300 MG CAPSULE. PO SCH ×3 (07:48→21:11)
[2021-05-06] MEDS: POTASSIUM CHLORIDE 10 MEQ TABLET.ER. PO SCH (07:49)
[2021-05-06] MEDS: DICYCLOMINE HCL 10 MG CAPSULE PO SCH ×2 (07:49→21:11)
[2021-05-06] MEDS: MELOXICAM 7.5 MG TABLET PO SCH (07:49)
[2021-05-06] MEDS: LOSARTAN 50 MG TABLET. PO SCH (07:50)
[2021-05-06] MEDS: LORazepam 1 MG TABLET PO SCH ×2 (07:50→21:11)
[2021-05-06] MEDS: HYDROmorphone PF 1 MG/ML DISP.SYRIN IVP PRN (09:19)
[2021-05-06 11:16] VITALS: BP 99/61
[2021-05-06 14:58] VITALS: BP 115/60
[2021-05-06 19:00] VITALS: BP 113/73
[2021-05-06] MEDS: traZODone 100 MG TABLET. PO SCH (21:11)
[2021-05-06] MEDS: CETIRIZINE HCL 10 MG TABLET PO SCH (21:11)
[2021-05-06] MEDS: MEMANTINE 5 MG TABLET. PO SCH (21:11)
[2021-05-06] MEDS: SIMVASTATIN 40 MG TABLET. PO SCH (21:11)
[2021-05-06] MEDS: MELATONIN 3 MG TABLET PO SCH (21:11)
[2021-05-06] MEDS: DULoxetine HCL 60 MG CAPSULE.DR PO SCH (21:11)
[2021-05-06] MEDS: MULTIVITAMIN I-VITE TABLET. PO SCH (21:11)
[2021-05-06] MEDS: DONEPEZIL HCL 10 MG TABLET PO SCH (21:11)
[2021-05-06] MEDS: MONTELUKAST 10 MG TABLET. PO SCH (21:11)
[2021-05-06 23:00] VITALS: BP 104/65
--- NOTE | 2021-05-07 | PN ---
DATE: 05/06/2021 SUBJECTIVE: The patient is resting slightly propped up in bed, sleeping comfortably. She obviously getting pain medication and this makes her very sleepy, any movement causes severe pain in her back. We did request transferring her to [facility] for MRI and vertebroplasty; however, so far no beds available. PHYSICAL EXAMINATION: GENERAL: When I saw her today, she looked well and was clearly in no apparent respiratory distress. She was pale, but no jaundice, cyanosis, no lymphadenopathy, no thyromegaly, no jugular venous distention. No limb edema. VITAL SIGNS: Her heart rate was 101, blood pressure was 99/61, temperature was 98.6, respiratory rate was 20 and oxygen saturation was 96% on 3 liters of oxygen. HEAD, EYES, EARS, NOSE, AND THROAT: Normocephalic, atraumatic. NECK: Supple. HEART: Showed normal first and second heart sounds. No gallop, rub or murmur. CHEST: Clear to auscultation. No crepitation or rhonchi. ABDOMEN: Distended, soft, nontender. NEUROLOGIC: She was grossly intact. LABORATORY DATA: Her white cell count was 19,500, hemoglobin 11, hematocrit 35, MCV 91, platelet count of 217,000 with normal manual differential. Her chemistry was within normal range. ASSESSMENT: 1. New onset of T12 compression fracture, for which she is now on IV hydromorphone. 2. The patient has multiple other medical problems including: A. Chronic obstructive pulmonary disease. B. Hypothyroidism. C. Irritable bowel syndrome. D. Hyperlipidemia. E. Senile macular degeneration. F. Dementia. PLAN: To continue with pain management. Continue with DVT prophylaxis. Await transfer to [facility] for consideration of vertebroplasty. AMY DR: Marjan TID: [id number]
[2021-05-07] MEDS: LEVOTHYROXINE 112 MCG TABLET PO SCH ×2 (05:42→08:23)
[2021-05-07] MEDS: IPRATRPIUM/ALBUTEROL 0.5/2.5MG 3 ML NEBU. NEB SCH ×4 (06:04→21:13)
[2021-05-07 07:56] LABS: HEMOGLOBIN 9.8 g/dL (12.0-15.5); RED BLOOD COUNT 3.41 x10^6/uL (3.50-5.40); RED CELL DISTRIBUTION WIDTH 22.3 % (11.5-14.5)
[2021-05-07 08:03] LABS: ALBUMIN/GLOBULIN RATIO 0.9 (1.0-1.7); CALCIUM 8.5 mg/dL (8.5-10.1); CREATININE 0.8 mg/dL (0.6-1.0); POTASSIUM 3.8 mmol/L (3.5-5.1); TOTAL BILIRUBIN 0.4 mg/dL (0.2-1.0); TOTAL PROTEIN 6.4 g/dL (6.4-8.2)
[2021-05-07] MEDS: FUROSEMIDE 40 MG TABLET PO SCH (08:22)
[2021-05-07] MEDS: PANTOPRAZOLE 40 MG TABLET. PO SCH (08:22)
[2021-05-07] MEDS: FLUTICASONE 50MCG/NASAL SPRAY 16GM BOTTLE. NS SCH (08:22)
[2021-05-07] MEDS: MELOXICAM 7.5 MG TABLET PO SCH (08:23)
[2021-05-07] MEDS: DICYCLOMINE HCL 10 MG CAPSULE PO SCH ×2 (08:23→20:58)
[2021-05-07] MEDS: GABAPENTIN 300 MG CAPSULE. PO SCH ×3 (08:23→20:58)
[2021-05-07] MEDS: POTASSIUM CHLORIDE 10 MEQ TABLET.ER. PO SCH (08:24)
[2021-05-07] MEDS: LOSARTAN 50 MG TABLET. PO SCH (08:25)
[2021-05-07] MEDS: HYDROmorphone PF 1 MG/ML DISP.SYRIN IVP PRN ×5 (08:25→21:25)
[2021-05-07] MEDS: LORazepam 1 MG TABLET PO SCH ×2 (08:25→21:01)
[2021-05-07 10:51] VITALS: BP 111/66
[2021-05-07] MEDS: ONDANSETRON PF 4 MG/2 ML VIAL. IVP PRN (11:00)
[2021-05-07 15:29] VITALS: BP 106/61
--- NOTE | 2021-05-07 16:42 | RAD ---
Exam performed: One view chest. Indication: Reason: wotsenimng shortness of breath and greenish sputum / Spl. Instructions: / Histor y: Date of Service: 05/07/2021 4:10 PM Comparison: One view chest from May 03, 2021. Single AP upright portable view chest findings: Cardiomediastinal silhouette is within upper limits of normal. There is development of patchy parench ymal opacity in the left lung base with blunting of the left costophrenic angle likely small effusion . The right lung is clear. There are postoperative changes of total left shoulder arthroplasty. Impression: Interval development of parenchymal opacity in the left lung base likely infiltrate or atelectasis wi th small left pleural effusion. Electronically signed by: Huyen Murry MD (05/07/2021 4:40 PM) [facility] [place]
[2021-05-07 18:31] VITALS: BP 126/69
--- NOTE | 2021-05-07 20:08 | PN ---
DATE: 05/07/2021 SUBJECTIVE: The patient is resting, slightly propped up in bed, in no apparent distress. She is complaining of severe low back pain that she cannot sit in the chair or even elevate the bed high enough. She was also complaining of cough with greenish sputum, although she denied any chest pain or shortness of breath. Denied any chills, rigors or fever. PHYSICAL EXAMINATION: GENERAL: When I examined her, she looked well and was clearly in no apparent respiratory distress. No pallor, jaundice, cyanosis or thyromegaly. No jugular venous distention. No limb edema. VITAL SIGNS: Her heart rate was 92, blood pressure was 111/66, temperature 97, respiratory rate 20, and oxygen saturation was 96% on 3 liters of oxygen. The rest of clinical exam is stable. LABORATORY DATA: Her lab work today showed white cell count down to 14,000, hemoglobin 9.8, hematocrit 31, MCV 91, and platelet count 200,000. Her serum sodium was 139, potassium 3.8, chloride 100, bicarbonate 31, anion gap of 8, BUN 19, creatinine 0.8. Estimated GFR was 68 mL per minute. Her glucose 125, calcium was 8.5. Total protein, AST, ALT, alkaline phosphatase were normal. Total protein 6.4, albumin 2.6. ASSESSMENT: 1. New onset of T12 compression fracture with severe low back pain. The patient now on IV hydromorphone. 2. The patient has multiple other medical problems including: A. Chronic obstructive pulmonary disease. B. Hypothyroidism. C. Irritable bowel syndrome. D. Hyperlipidemia. E. Senile macular degeneration. F. Dementia. PLAN: To continue with pain management. Continue with DVT prophylaxis. Continue with physical and occupational therapy. Await transfer to [facility] for vertebroplasty. RACHEL DR: Marjan TID: [id number]
[2021-05-07] MEDS: MONTELUKAST 10 MG TABLET. PO SCH (20:58)
[2021-05-07] MEDS: CETIRIZINE HCL 10 MG TABLET PO SCH (20:58)
[2021-05-07] MEDS: MULTIVITAMIN I-VITE TABLET. PO SCH (20:58)
[2021-05-07] MEDS: traZODone 100 MG TABLET. PO SCH (20:59)
[2021-05-07] MEDS: DONEPEZIL HCL 10 MG TABLET PO SCH (20:59)
[2021-05-07] MEDS: MELATONIN 3 MG TABLET PO SCH (20:59)
[2021-05-07] MEDS: DULoxetine HCL 60 MG CAPSULE.DR PO SCH (21:00)
[2021-05-07] MEDS: MEMANTINE 5 MG TABLET. PO SCH (21:00)
[2021-05-07] MEDS: SIMVASTATIN 40 MG TABLET. PO SCH (21:00)
[2021-05-08] MEDS: HYDROmorphone PF 1 MG/ML DISP.SYRIN IVP PRN ×2 (04:11→12:16)
[2021-05-08 05:19] VITALS: BP 98/61
[2021-05-08] MEDS: IPRATRPIUM/ALBUTEROL 0.5/2.5MG 3 ML NEBU. NEB SCH ×3 (05:57→16:17)
[2021-05-08] MEDS: PANTOPRAZOLE 40 MG TABLET. PO SCH (07:47)
[2021-05-08] MEDS: MELOXICAM 7.5 MG TABLET PO SCH (07:48)
[2021-05-08] MEDS: LOSARTAN 50 MG TABLET. PO SCH (07:48)
[2021-05-08] MEDS: POTASSIUM CHLORIDE 10 MEQ TABLET.ER. PO SCH (07:49)
[2021-05-08] MEDS: LEVOTHYROXINE 112 MCG TABLET PO SCH (07:49)
[2021-05-08] MEDS: GABAPENTIN 300 MG CAPSULE. PO SCH ×2 (07:49→14:42)
[2021-05-08] MEDS: FUROSEMIDE 40 MG TABLET PO SCH (07:49)
[2021-05-08] MEDS: DICYCLOMINE HCL 10 MG CAPSULE PO SCH (07:49)
[2021-05-08] MEDS: LORazepam 1 MG TABLET PO SCH (07:52)
[2021-05-08] MEDS: FLUTICASONE 50MCG/NASAL SPRAY 16GM BOTTLE. NS SCH (07:52)
[2021-05-08] MEDS ORDERED: DOCUSATE SODIUM 100 MG CAPSULE PO SCH (09:00)
[2021-05-08 11:19] VITALS: BP 136/75
[2021-05-08 15:51] VITALS: BP 125/70
--- NOTE | 2021-05-08 20:50 | PN ---
DATE: 05/08/2021 SUBJECTIVE: The patient is resting, slightly propped up in bed, in no apparent respiratory distress. She continued to complain of severe pain with movement, sitting up. OBJECTIVE: GENERAL: On examining her, however, she looked well and was pale, but not jaundiced, cyanosed. No lymphadenopathy, no thyromegaly, no jugular venous distention. No limb edema. VITAL SIGNS: Her heart rate was 85, blood pressure was 136/75, temperature 97.6, respiratory rate was 20 and oxygen saturation was 97% on 3 liters of oxygen. HEAD, EYES, EARS, NOSE, AND THROAT: Normocephalic, atraumatic. NECK: Supple. HEART: Showed normal first and second heart sounds. No gallop, rub or murmur. CHEST: Clear to auscultation, no crepitation or rhonchi. ABDOMEN: Distended, soft, nontender. NEUROLOGIC: She was grossly intact. Her intake over the last 24 hours was 1300, no output was recorded. LABORATORY DATA: As of yesterday showed a serum sodium of 139, potassium 3.8, chloride 100, bicarbonate 31, anion gap of 8, BUN 19, creatinine 0.8. Estimated GFR was 68 mL per minute. Her glucose 125, calcium was 8.5. Total bilirubin, AST, ALT, alkaline phosphatase were normal. Total protein 6.4, albumin 3. Serum sodium was 14, hemoglobin 10, hematocrit 31, MCV 91, and platelet count 200,000. Urinalysis essentially unremarkable. ASSESSMENT: 1. New onset T12 compression fracture with severe low back pain. The patient is now on IV hydromorphone. 2. The patient has multiple other medical problems including: A. Chronic obstructive pulmonary disease. B. Hypothyroidism. C. Irritable bowel syndrome. D. Hyperlipidemia. E. Senile macular degeneration. F. Dementia. PLAN: Continue with pain management. Continue with DVT prophylaxis. Continue with all other medication. Continue with physical and occupational therapy. I have spoken to the transfer center at [facility]. When she is accepted there, she would be discharged there today, hopefully for an MRI and vertebroplasty. VENITA DR: Marjan TID: [id number]
[2021-05-10] MEDS ORDERED: LEVOTHYROXINE 112 MCG TABLET PO SCH (06:00)
== END 2021-05-08 15:20 | disposition short-term general hospital (02) | DRG 543 ==
LOC: ER 08:38 → 1 SOUTH 17:24
PROVIDERS: ADMIT Hospitalist; ATTEND Hospitalist
DX: M48.54XA Collapsed vertebra, not elsewhere classified, thoracic region, initial encounter for fracture (principal); J96.10 Chronic respiratory failure, unspecified whether with hypoxia or hypercapnia; F03.90 Unspecified dementia, unspecified severity, without behavioral disturbance, psychotic disturbance, mood disturbance, and anxiety; E03.9 Hypothyroidism, unspecified; Z96.653 Presence of artificial knee joint, bilateral; J44.9 Chronic obstructive pulmonary disease, unspecified; E78.5 Hyperlipidemia, unspecified; K58.9 Irritable bowel syndrome, unspecified; H35.30 Unspecified macular degeneration; G89.29 Other chronic pain; Z20.822 Contact with and (suspected) exposure to COVID-19; Z90.710 Acquired absence of both cervix and uterus; Z98.41 Cataract extraction status, right eye; Z98.42 Cataract extraction status, left eye; Z87.891 Personal history of nicotine dependence; Z88.6 Allergy status to analgesic agent; Z66 Do not resuscitate
CPT/HCPCS: 36415; 70450; 71045; 72125; 72128; 72131; 72170; 80048; 80053; 81001; 84484; 85007; 85025; 85027; 87426; 93005; 94640; 94760; 96374; 96375; 96376; J1170; J2405; J3010; U0003; 97110; 97530; 97535; 99285-25